=== PATIENT | male | born 1940 | race African-American/Black ===

== ENCOUNTER 2019-04-22 10:54 | Day surgery (SDC) | payer MEDICARE, BC ==
[2019-04-22 12:23] LABS: ADD MAN DIFF? NO
[2019-04-22 12:24] LABS: BASOPHIL # 0.1 10^3/ul (0.0-0.1); BASOPHILS % 0.7 % (0.0-2.0); EOSINOPHILS # 0.4 10^3/ul (0.0-0.5); EOSINOPHILS % 5.7 % (0.0-7.0); HEMATOCRIT 40.2 % (42.0-52.0); HEMOGLOBIN 12.4 g/dl (14.0-18.0); LYMPHOCYTES % 27.7 % (15.0-51.0); MEAN CORPUSCULAR HEMOGLOBIN 26.9 pg (29.0-33.0); MEAN CORPUSCULAR HGB CONC 30.8 g/dl (32.0-37.0); MEAN CORPUSCULAR VOLUME 87.2 fl (82.0-101.0); MEAN PLATELET VOLUME 12.4 fl (7.4-10.4); MONOCYTE # 0.7 10^3/ul (0.3-0.9); MONOCYTES % 8.9 % (0.0-11.0); NEUTROPHIL # 4.2 10^3/ul (1.6-7.5); NEUTROPHILS % 56.9 % (39.0-77.0); PLATELET COUNT 113 10^3/UL (140-415); RED BLOOD COUNT 4.61 10^6/ul (4.70-6.10); RED CELL DISTRIBUTION WIDTH 17.3 % (11.5-14.5)
[2019-04-22 12:24] LABS: WHITE BLOOD COUNT 7.3 10^3/ul (4.8-10.8)
[2019-04-22] MEDS ORDERED: SOD CHLORIDE 0.9% 500 ML IV (12:30)
[2019-04-22 12:45] LABS: ALANINE AMINOTRANSFERASE 23 IU/L (13-69); ALBUMIN 4.2 g/dl (3.3-4.9); ALBUMIN/GLOBULIN RATIO 1.23; ALKALINE PHOSPHATASE 100 IU/L (42-121); ANION GAP 14 (5-13); ASPARTATE AMINO TRANSFERASE 33 IU/L (15-46); BILIRUBIN,INDIRECT 0.1 mg/dl (0-1.1); BILIRUBIN,TOTAL 0.1 mg/dl (0.2-1.3); CALCIUM 9.9 mg/dl (8.4-10.2); CARBON DIOXIDE 24 mmol/L (21-31); CHLORIDE 109 mmol/L (97-110); GLUCOSE 83 mg/dl (70-220); TOTAL PROTEIN 7.6 g/dl (6.1-8.1)
[2019-04-22 12:48] LABS: SODIUM 147 mmol/L (135-144)
[2019-04-22 12:49] LABS: BLOOD UREA NITROGEN 54 mg/dl (7-20); CREATININE 8.79 mg/dl (0.61-1.24); POTASSIUM 5.9 mmol/L (3.5-5.1)
[2019-04-22 13:00] LABS: INR 1.19; PROTIME 15.2 Sec (11.9-14.9); PT RATIO 1.2
[2019-04-22 13:04] LABS: PARTIAL THROMBOPLASTIN TIME 47.5 Sec (23.0-35.0)
== END 2019-04-22 13:57 | disposition home or self-care (01) ==
LOC: SDS 10:54
DX: N18.6 End stage renal disease (principal); I12.0 Hypertensive chronic kidney disease with stage 5 chronic kidney disease or end stage renal disease; Z53.09 Procedure and treatment not carried out because of other contraindication; E87.5 Hyperkalemia
CPT/HCPCS: 71045; 80053; 82962; 85025; 85610; 85730; 93005

== ENCOUNTER 2019-05-13 05:44 | Day surgery (SDC) | payer MEDICARE, BC ==
[2019-05-13 06:45] LABS: ADD MAN DIFF? NO
[2019-05-13 06:47] LABS: WHITE BLOOD COUNT 6.5 10^3/ul (4.8-10.8)
[2019-05-13 06:47] LABS: ABNORMAL IP MESSAGE 1; BASOPHILS % 0.3 % (0.0-2.0); EOSINOPHILS # 0.5 10^3/ul (0.0-0.5); EOSINOPHILS % 6.9 % (0.0-7.0); HEMOGLOBIN 10.1 g/dl (14.0-18.0); LYMPHOCYTES # 1.7 10^3/ul (0.8-2.9); MEAN CORPUSCULAR HEMOGLOBIN 26.4 pg (29.0-33.0); MEAN CORPUSCULAR HGB CONC 31.6 g/dl (32.0-37.0); MEAN CORPUSCULAR VOLUME 83.6 fl (82.0-101.0); MEAN PLATELET VOLUME 11.6 fl (7.4-10.4); MONOCYTES % 15.9 % (0.0-11.0); NEUTROPHIL # 3.3 10^3/ul (1.6-7.5); NEUTROPHILS % 50.6 % (39.0-77.0); NUCLEATED RED BLOOD CELLS # 0.1 10^3/ul (0.0-0.0); NUCLEATED RED BLOOD CELLS% 0.8 /100WBC (0.0-0.0); PLATELET COUNT 106 10^3/UL (140-415); POSITIVE DIFF @See below; RED BLOOD COUNT 3.83 10^6/ul (4.70-6.10); RED CELL DISTRIBUTION WIDTH 17.5 % (11.5-14.5)
[2019-05-13] MEDS ORDERED: THROMBIN 5000 UNIT VIAL (07:03)
[2019-05-13] MEDS ORDERED: LIDOCAINE 1% (MPF) 30 ML INJ (07:03)
[2019-05-13] MEDS ORDERED: GELATIN SIZE 100 SPONGE (07:03)
[2019-05-13] MEDS ORDERED: HEPARIN 1000 UNITS/ML 10 ML INJ (07:03)
[2019-05-13 07:07] LABS: INR 1.18; PROTIME 15.1 Sec (11.9-14.9); PT RATIO 1.2
[2019-05-13 07:10] LABS: ALANINE AMINOTRANSFERASE 16 IU/L (13-69); ALBUMIN 4.1 g/dl (3.3-4.9); ALBUMIN/GLOBULIN RATIO 1.24; ALKALINE PHOSPHATASE 97 IU/L (42-121); ANION GAP 12 (5-13); ASPARTATE AMINO TRANSFERASE 24 IU/L (15-46); BILIRUBIN,INDIRECT 0.2 mg/dl (0-1.1); BILIRUBIN,TOTAL 0.2 mg/dl (0.2-1.3); CALCIUM 9.1 mg/dl (8.4-10.2); CARBON DIOXIDE 29 mmol/L (21-31); CHLORIDE 102 mmol/L (97-110); GLUCOSE 96 mg/dl (70-220); POTASSIUM 4.6 mmol/L (3.5-5.1); SODIUM 143 mmol/L (135-144); TOTAL PROTEIN 7.4 g/dl (6.1-8.1)
[2019-05-13 07:16] LABS: BLOOD UREA NITROGEN 35 mg/dl (7-20)
[2019-05-13 07:18] LABS: PARTIAL THROMBOPLASTIN TIME 44.3 Sec (23.0-35.0)
[2019-05-13] MEDS: LIDOCAINE 1% (MPF) 30 ML INJ INJ (07:30)
[2019-05-13] MEDS: HEPARIN 1000 UNITS/ML 10 ML INJ IRR (07:30)
[2019-05-13] MEDS ORDERED: ROPIVACAINE 0.5 % 30 ML VIAL (07:32)
[2019-05-13] MEDS ORDERED: MIDAZOLAM 1 MG/ML 2 ML INJ (07:34)
[2019-05-13] MEDS ORDERED: PROPOFOL 100 ML (09:11)
[2019-05-13] MEDS ORDERED: CEFAZOLIN 1 GM INJ (09:11)
[2019-05-13] MEDS ORDERED: FENTAnyl 50 MCG/ML VIAL (09:11)
[2019-05-13] MEDS ORDERED: EPHEDrine 25 MG/5 ML SYG IV (09:30)
[2019-05-13] MEDS ORDERED: ONDANSETRON 4 MG INJ IV (09:30)
[2019-05-13] MEDS ORDERED: LABETALOL HCL 20MG INJ IV (09:30)
[2019-05-13] MEDS ORDERED: MEPERIDINE 25 MG INJ IV (09:30)
[2019-05-13] MEDS ORDERED: FENTAnyl 50 MCG/ML VIAL IV ×3 (09:30)
[2019-05-13] MEDS ORDERED: KETOROLAC 30 MG INJ IV (09:30)
[2019-05-13] MEDS ORDERED: MIDAZOLAM 1 MG/ML 2 ML INJ IV (09:30)
[2019-05-13] MEDS ORDERED: DIPHENHYDRAMINE 50 MG INJ IV (09:30)
[2019-05-13] MEDS ORDERED: OXYCODONE/ACETAMINOPHEN (5/325) TAB PO ×2 (09:30)
[2019-05-13] MEDS ORDERED: hydrALAzine 20 MG INJ IV (09:30)
[2019-05-13] MEDS ORDERED: ALBUTEROL 0.083% (NEB) 2.5 MG/3 ML AMP HHN (09:30)
== END 2019-05-13 11:20 | disposition home or self-care (01) ==
LOC: SDS 05:44
DX: T82.590D Other mechanical complication of surgically created arteriovenous fistula, subsequent encounter (principal); Y84.1 Kidney dialysis as the cause of abnormal reaction of the patient, or of later complication, without mention of misadventure at the time of the procedure; I12.0 Hypertensive chronic kidney disease with stage 5 chronic kidney disease or end stage renal disease; N18.6 End stage renal disease; E11.9 Type 2 diabetes mellitus without complications; Z79.82 Long term (current) use of aspirin
CPT/HCPCS: 36833; 71045; 80053; 82962; 85025; 85610; 85730; 88304; 93005

== ENCOUNTER 2019-07-13 12:53 | Day surgery (SDC) | payer MEDICARE, BC ==
[2019-07-13] MEDS ORDERED: SOD CHLORIDE 0.9% 1,000 ML IV (14:00)
[2019-07-13 14:20] LABS: ADD MAN DIFF? NO
[2019-07-13 14:22] LABS: WHITE BLOOD COUNT 6.9 10^3/ul (4.8-10.8)
[2019-07-13 14:22] LABS: ABNORMAL IP MESSAGE 1; BASOPHILS % 0.4 % (0.0-2.0); EOSINOPHILS % 0.4 % (0.0-7.0); HEMOGLOBIN 12.9 g/dl (14.0-18.0); LYMPHOCYTES % 28.3 % (15.0-51.0); MEAN CORPUSCULAR HEMOGLOBIN 28.6 pg (29.0-33.0); MEAN CORPUSCULAR HGB CONC 31.5 g/dl (32.0-37.0); MEAN CORPUSCULAR VOLUME 90.9 fl (82.0-101.0); MONOCYTE # 0.6 10^3/ul (0.3-0.9); MONOCYTES % 8.6 % (0.0-11.0); NEUTROPHIL # 4.3 10^3/ul (1.6-7.5); NEUTROPHILS % 62.2 % (39.0-77.0); NUCLEATED RED BLOOD CELLS # 0.1 10^3/ul (0.0-0.0); PLATELET COUNT 104 10^3/UL (140-415); POSITIVE DIFF @See below; RED BLOOD COUNT 4.51 10^6/ul (4.70-6.10); RED CELL DISTRIBUTION WIDTH 18.6 % (11.5-14.5)
[2019-07-13] MEDS ORDERED: HEPARIN 1000 UNITS/ML 10 ML INJ (14:27)
[2019-07-13] MEDS ORDERED: LIDOCAINE 1% (MDV) 20 ML INJ (14:27)
[2019-07-13] MEDS ORDERED: HEPARIN 1000 UNITS/NS (A-LINE) 1,000 ML (14:27)
[2019-07-13] MEDS ORDERED: MIDAZOLAM 1 MG/ML 2 ML INJ (14:28)
[2019-07-13] MEDS ORDERED: FENTAnyl 50 MCG/ML VIAL (14:28)
[2019-07-13 14:49] LABS: ALANINE AMINOTRANSFERASE 30 IU/L (13-69); ALBUMIN 4.3 g/dl (3.3-4.9); ALBUMIN/GLOBULIN RATIO 1.22; ALKALINE PHOSPHATASE 145 IU/L (42-121); ANION GAP 17 (5-13); ASPARTATE AMINO TRANSFERASE 34 IU/L (15-46); BILIRUBIN,INDIRECT 0.3 mg/dl (0-1.1); BILIRUBIN,TOTAL 0.3 mg/dl (0.2-1.3); CALCIUM 9.5 mg/dl (8.4-10.2); CARBON DIOXIDE 20 mmol/L (21-31); CHLORIDE 98 mmol/L (97-110); GLUCOSE 101 mg/dl (70-220); POTASSIUM 4.4 mmol/L (3.5-5.1); SODIUM 135 mmol/L (135-144); TOTAL PROTEIN 7.8 g/dl (6.1-8.1)
[2019-07-13 14:50] LABS: BLOOD UREA NITROGEN 51 mg/dl (7-20); CREATININE 9.52 mg/dl (0.61-1.24)
== END 2019-07-13 19:03 | disposition home or self-care (01) ==
LOC: SDS 12:53
DX: I12.0 Hypertensive chronic kidney disease with stage 5 chronic kidney disease or end stage renal disease (principal); N18.6 End stage renal disease
CPT/HCPCS: 36561; 71045; 80053; 82962; 85025